=== PATIENT | female | born 1985 | race Caucasian/White ===

== ENCOUNTER → 2017-04-24 | Outpatient (REF) ==
[~2017-04-24] MED LIST: COLACE 100100 MG/CAP PO; MOTRIN 600600 MG/TAB PO; PERCOCET 325 MG1 TA2 PO; PRENATAL1 TA1 PO
== END ==
LOC: WSOH 18:45
DX: Z02.89 Encounter for other administrative examinations (principal)

== ENCOUNTER 2020-12-27 19:07 | Emergency (ER) | payer OTHER, BC ==
[~2020-12-27] VITALS: Ht 162.6 cm; Wt 68.2 kg
[2020-12-27 19:14] VITALS: BP 130/81; TEMP 97.5
[2020-12-27 20:37] VITALS: PULSE 65
== END 2020-12-27 20:37 | disposition home or self-care (01) ==
LOC: COL.ER 19:07
DX: S61.213A Laceration without foreign body of left middle finger without damage to nail, initial encounter (principal); S60.415A Abrasion of left ring finger, initial encounter; Z23 Encounter for immunization; W23.0XXA Caught, crushed, jammed, or pinched between moving objects, initial encounter

== ENCOUNTER → 2021-02-16 | Outpatient (REF) | LOC: COL.LAB 08:22 | DX: Z20.822 Contact with and (suspected) exposure to COVID-19 (principal) ==

== ENCOUNTER → 2021-02-22 | Outpatient (REF) | LOC: ZCOL.LAB 09:18 | DX: Z20.822 Contact with and (suspected) exposure to COVID-19 (principal) ==

== ENCOUNTER 2022-04-26 13:44 | Day surgery (SDC) | payer BC ==
[~2022-04-26] VITALS: Ht 162.6 cm; Wt 70.5 kg
[2022-04-26] MEDS ORDERED: HCTZ 25MG TAB25 MG PO (14:23)
[2022-04-26] MEDS ORDERED: PRIL40 PO (14:24)
[2022-04-26] MEDS ORDERED: FLONASEALLERGY NS (14:24)
[2022-04-26] MEDS ORDERED: PROBIOTIC BLEN1 EACH PO (14:25)
[2022-04-26] MEDS ORDERED: PEPCID 20MG TAB20 MG PO (14:25)
[2022-04-26 14:39] VITALS: BP 112/68; PULSE 86; TEMP 97.9
[2022-04-26 15:05] VITALS: BP 115/80; PULSE 90; TEMP 98.4
--- NOTE | 2022-04-26 15:15 | NUR ---
1505 - PT arrives from procedure and was assisted w/ ambulating from cart to chair 2:1 w/ RN's. Monitors applied and VSS. Warm blankets applied; shoes remain on. Snack and drink provided; PT denies pain/nausea, no vomiting. Visitor remains present. Verbal report obtained. Will monitor per intervals; PT oriented to room and call vizcarra, within reach.
[2022-04-26 15:20] VITALS: BP 108/72; PULSE 77
[2022-04-26 15:35] VITALS: BP 121/70; PULSE 76
--- NOTE | 2022-04-26 16:10 | NUR ---
1505-PT TO BAY. AMBULATED TO CHAIR. AOX3. DENIES ANY N/V. 1540-DR IN ROOM DISCUSSING PROCEDURE. 1550-IV DC'D. 1600-DISCHARGE EDUCATION COMPLETED. VERBALIZED UNDERSTANDING. 1610-PT OFF UNIT PER WHEELCHAIR. PT DISCHARGED TO HOME WITH PER PERSONAL VEHICLE.
[2022-04-26 17:17] VITALS: BP 104/70; PULSE 94
== END 2022-04-26 16:10 | disposition home or self-care (01) ==
LOC: SDCO 13:44
DX: K21.9 Gastro-esophageal reflux disease without esophagitis (principal)
CPT/HCPCS: J2704; J3010; J7030

== ENCOUNTER → 2023-08-01 | Outpatient (CLI) | payer BC ==
[~2023-08-01] MED LIST changes: +FLONASEALLERGY NS; +HCTZ 25MG TAB25 MG PO; +PEPCID 20MG TAB20 MG PO; +PRIL40 PO; +PROBIOTIC BLEN1 EACH PO
== END ==
LOC: COL.RAD 07:51
DX: R05.9 Cough, unspecified (principal)
CPT/HCPCS: A9541-JZ

== ENCOUNTER → 2024-04-23 | Outpatient (CLI) | payer BC | LOC: MC.RAD 10:56 | DX: Z12.31 Encounter for screening mammogram for malignant neoplasm of breast (principal); Z01.419 Encounter for gynecological examination (general) (routine) without abnormal findings ==